=== PATIENT | male | born 1965 | race Hispanic/Latino ===

== ENCOUNTER 2019-09-27 06:34 | Emergency (ER) | payer SELFPAY ==
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
[2019-09-27] MEDS ORDERED: HYDROCODONE/APAP 10/325 TAB ONE (07:25)
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
[2019-09-27 08:20] VITALS: TEMP 97.6
[2019-09-27 08:22] VITALS: BP 142/90; O2SAT 98
== END 2019-09-27 08:14 | disposition home or self-care (01) ==
LOC: ER 06:34
DX: S32.019A Unspecified fracture of first lumbar vertebra, initial encounter for closed fracture (principal); S32.029A Unspecified fracture of second lumbar vertebra, initial encounter for closed fracture; S32.039A Unspecified fracture of third lumbar vertebra, initial encounter for closed fracture; V49.49XA Driver injured in collision with other motor vehicles in traffic accident, initial encounter; Z72.0 Tobacco use
CPT/HCPCS: 74176; 99284

== ENCOUNTER 2020-01-24 18:41 | Emergency (ER) | payer OTHER, SELFPAY ==
[2020-01-24] MEDS ORDERED: NA CHLORIDE 0.9% 1,000 ML ONE (21:08)
[2020-01-24] MEDS ORDERED: MAGNE/ALUM HYDROXD 30 ML UCUP ONE (21:32)
[2020-01-24] MEDS ORDERED: LIDOCAINE VISCOUS 2% SOLN 15 ML UDC ONE (21:34)
[2020-01-24] MEDS ORDERED: NS 0.9% VIAL 10 ML ONE (21:35)
[2020-01-24 21:40] LABS: Absolute Lymphocytes (CBC) 0.7 K/uL (0.7-4.9); Basophils % 0.3 % (0-1.3); Hematocrit 40.9 % (39.6-49.0); Lymphocytes % 4.4 % (15.3-44.8); MPV 8.5 fL (7.6-11.3)
[2020-01-24 22:00] LABS: Albumin 2.8 g/dL (3.4-5.0); Potassium 3.5 mmol/L (3.5-5.1); Protein, Total 7.4 g/dL (6.4-8.2)
--- NOTE | 2020-01-24 22:37 | RAD REPORT ---
EXAM DESCRIPTION: US - Abdomen Exam Complete - 01/24/2020 10:08 pm CLINICAL HISTORY: Abdominal pain. ABD PAIN COMPARISON: No comparisons FINDINGS: The liver is normal in size, shape and echotexture. No focal liver lesions or intrahepatic biliary dilatation is seen. Cholecystectomy. Common bile duct is normal in caliber measuring 5 millimeters. Both kidneys are normal in size, shape and echotexture. No hydronephrosis, focal lesion of concern or perinephric fluid. The spleen is normal in size measuring 8 centimeters. The pancreas and aorta are obscured by bowel gas. The visualized aspects of the IVC are grossly normal. IMPRESSION: Unremarkable study except for limited assessment of the pancreas and aorta due to bowel gas. Cholecystectomy.
[2020-01-24 23:23] LABS: Blood Morphology Comment NOT SEEN (NOT SEEN); Platelet Estimate ADEQ
--- NOTE | 2020-01-25 00:17 | ER ---
Nurse's Notes [facility] Name: Ignacio Starr Age: 54 yrs Sex: Male : 1965 Arrival Date: 01/24/2020 Time: 18:48 Bed 7 Private MD: Diagnosis: Acute pancreatitis, unspecified;Acute viral hepatitis, unspecified Presentation: 01/23 18:55 Chief complaint: Patient states: epigastric burning, upper abd pain and intermittent ss fever x 3 weeks. Pt has been seen by Doctor in [place] and had extensive testing to see what the problem may be. Pt is awaiting to hear back his results for hepatitis testing. Coronavirus screen: The patient has NOT traveled to a country currently being monitored by the [facility] within the last 14 days. Proceed with normal triage procedures. Ebola Screen: Patient denies exposure to infectious person. Patient denies travel to an Ebola-affected area in the 21 days before illness onset. Initial Sepsis Screen: Does the patient meet any 2 criteria? No. Patient's initial sepsis screen is negative. Does the patient have a suspected source of infection? No. Patient's initial sepsis screen is negative. Risk Assessment: Do you want to hurt yourself or someone else? Patient reports no desire to harm self or others. 18:55 Method Of Arrival: Ambulatory ss 18:55 Acuity: DMITRIY 3 ss Triage Assessment: 22:24 General: Appears in no apparent distress. comfortable, well groomed, well developed, lw1 well nourished. Pain: Complains of pain in diaphragm, xyphoid area and abdomen. 22:26 General: Behavior is calm, cooperative, appropriate for age. EENT: No deficits noted. lw1 Neuro: No deficits noted. Cardiovascular: No deficits noted. Respiratory: No deficits noted. GI:. Historical: - Allergies: 19:00 No Known Allergies; ss - PMHx: 19:00 None; ss - PSHx: 19:00 Cholecystectomy; Appendectomy; ss - Immunization history:: Adult Immunizations up to date. - Social history:: Smoking status: Patient denies any tobacco usage or history of. Screenin:24 Abuse screen: Denies threats or abuse. Denies injuries from another. Nutritional lw1 screening: No deficits noted. Tuberculosis screening: No symptoms or risk factors identified. Fall Risk IV access (20 points). Assessment: 22:21 Pain: Complains of pain in diaphragm, xyphoid area and abdomen Pain does not radiate. lw1 Pain currently is 5 out of 10 on a pain scale. Pain began 2-3 WEEKS AGO. Cardiovascular: No deficits noted. GI: Bowel sounds present X 4 quads. Abd is soft Abdomen is tender to palpation in right upper quadrant and right lower quadrant. 01/24 00:47 Reassessment: CALLED REPORT TO [facility] TALKED WITH SISSY. ALL QUESSTIONS AND CONCERNS lw1 ANSWERED AT THIS TIME, STATED TO CALL BACK IF ANY OTHER QUESTIONS OCCUR. [facility] IS CALLING FOR AMBULANCE AT THIS TIME. Vital Signs: 01/23 18:55 BP 129 / 87; Pulse 106; Resp 16; Temp 99.5(TE); Pulse Ox 99% on R/A; Weight 89.81 kg; ss Height 5 ft. 4 in. (162.56 cm); Pain 9/10; 21:23 BP 110 / 72; Pulse 94; Resp 22; Pulse Ox 95% on R/A; Pain 5/10; lw1 22:20 BP 119 / 73; Pulse 88; Resp 20; Pulse Ox 97% on R/A; Pain 5/10; lw1 23:34 BP 112 / 71; Pulse 79; Resp 20; Pulse Ox 95% on R/A; Pain 3/10; lw1 01/24 00:53 BP 126 / 76; Pulse 83; Resp 20; Pulse Ox 97% on R/A; Pain 3/10; lw1 01/23 18:55 Body Mass Index 33.99 (89.81 kg, 162.56 cm) ED Course: 01/23 18:48 Patient arrived in ED. ag5 18:59 Triage completed. ss 19:00 Arm band placed on right wrist. ss 20:06 Calvin Giordano MD is Attending Physician. tw4 20:36 Debbie Velez, ZACH is Primary Nurse. lw1 21:22 No provider procedures requiring assistance completed. Inserted saline lock: 20 gauge lw1 in right antecubital area, using aseptic technique. Blood collected. Missed attempt(s): 22 gauge in right hand. Patient maintains SpO2 saturation greater than 95% on room air. 21:22 Initial lab(s) drawn, by me, sent to lab. lw1 21:32 Radiology exam delayed due to lab results not completed at this time. (BUN/Creatinine). 2 22:07 Notified ED physician of a critical lab result(s). total Bilirubin 6.0. bb 22:09 US Abdomen Complete In Process Unspecified. EDMS 22:49 CT Abd/Pelvis - IV Contrast Only In Process Unspecified. EDMS 22:57 Patient has correct armband on for positive identification. Bed in low position. Call lw1 light in reach. Side rails up X 1. Pulse ox on. NIBP on. Noise minimized. Lights dimmed. Head of bed. Administered Medications: 21:21 Drug: NS 0.9% 1000 ml Route: IV; Rate: 1 bolus; Site: right antecubital; lw1 23:51 Follow up: Response: No adverse reaction; IV Status: Completed infusion; IV Intake: ea 1000ml 01/24 00:54 Follow up: Response: No adverse reaction lw1 01/23 22:16 Drug: ProTONIX 40 mg Route: IVP; Site: right antecubital; lw1 01/24 00:54 Follow up: Response: No adverse reaction; Pain is decreased lw1 01/23 22:16 Drug: GI Cocktail without - (Maalox Suspension 30 ml, Lidocaine Liquid 2 % 15 lw1 ml) Route: PO; 01/24 00:54 Follow up: Response: No adverse reaction; Pain is decreased lw1 Intake: 01/23 23:51 IV: 1000ml; Total: 1000ml. ea Outcome: 01/24 00:16 ER care complete, transfer ordered by . tw4 01:27 Patient left the ED. ar5 Signatures: Dispatcher [employer] EDMS Odalis Cuevas RN RN bb Smirch, Shelby, RN RN ss McGuire, Victoria 2 Inessa Hernandez RN RN ea Wadley, Terrence, MD MD tw4 Robles, Autumn ar5 Jade He LaDonna, RN RN lw1
--- NOTE | 2020-01-25 00:17 | EDPHYS ---
Physician Documentation [facility] Name: Ignacio Starr Age: 54 yrs Sex: Male : 1965 Arrival Date: 01/24/2020 Time: 18:48 Bed 7 Private MD: ED Physician Calvin Giordano HPI: 01/23 21:07 This 54 yrs old Male presents to ER via Ambulatory with complaints of tw4 Abdominal Pain. 21:07 The patient presents with abdominal pain. tw4 21:10 Onset: The symptoms/episode began/occurred 3 week(s) ago. The symptoms do not radiate. tw4 Associated signs and symptoms: none. The symptoms are described as dull. Modifying factors: The symptoms are alleviated by nothing, the symptoms are aggravated by nothing. Severity of pain: At its worst the pain was very mild in the emergency department the pain is unchanged. The patient has not experienced similar symptoms in the past. Historical: - Allergies: 19:00 No Known Allergies; ss - PMHx: 19:00 None; ss - PSHx: 19:00 Cholecystectomy; Appendectomy; ss - Immunization history:: Adult Immunizations up to date. - Social history:: Smoking status: Patient denies any tobacco usage or history of. ROS: 21:10 Constitutional: Negative for fever, chills, and weight loss, Eyes: Negative for injury, tw4 pain, redness, and discharge, Cardiovascular: Negative for chest pain, palpitations, and edema, Respiratory: Negative for shortness of breath, cough, wheezing, and pleuritic chest pain, Back: Negative for injury and pain, MS/Extremity: Negative for injury and deformity, Skin: Negative for injury, rash, and discoloration. 21:10 Abdomen/GI: Positive for abdominal pain, Negative for constipation, abdominal cramps, abdominal distension, anorexia, dysphagia, hematemesis, black/tarry stool, rectal pain, rectal bleeding, bowel incontinence, flatulence. Exam: 21:10 Constitutional: This is a well developed, well nourished patient who is awake, alert, tw4 and in no acute distress. Head/Face: Normocephalic, atraumatic. Chest/axilla: Normal chest wall appearance and motion. Nontender with no deformity. No lesions are appreciated. Cardiovascular: Regular rate and rhythm with a normal S1 and S2. No gallops, murmurs, or rubs. Normal PMI, no JVD. No pulse deficits. Respiratory: Lungs have equal breath sounds bilaterally, clear to auscultation and percussion. No rales, rhonchi or wheezes noted. No increased work of breathing, no retractions or nasal flaring. Back: No spinal tenderness. No costovertebral tenderness. Full range of motion. MS/ Extremity: Pulses equal, no cyanosis. Neurovascular intact. Full, normal range of motion. Neuro: Awake and alert, GCS 15, oriented to person, place, time, and situation. Cranial nerves II-XII grossly intact. Motor strength 5/5 in all extremities. Sensory grossly intact. Cerebellar exam normal. Normal gait. Psych: Awake, alert, with orientation to person, place and time. Behavior, mood, and affect are within normal limits. 21:10 Abdomen/GI: Inspection: abdomen appears normal, Bowel sounds: normal, Palpation: soft. Vital Signs: 18:55 BP 129 / 87; Pulse 106; Resp 16; Temp 99.5(TE); Pulse Ox 99% on R/A; Weight 89.81 kg; ss Height 5 ft. 4 in. (162.56 cm); Pain 9/10; 21:23 BP 110 / 72; Pulse 94; Resp 22; Pulse Ox 95% on R/A; Pain 5/10; lw1 22:20 BP 119 / 73; Pulse 88; Resp 20; Pulse Ox 97% on R/A; Pain 5/10; lw1 23:34 BP 112 / 71; Pulse 79; Resp 20; Pulse Ox 95% on R/A; Pain 3/10; lw1 01/24 00:53 BP 126 / 76; Pulse 83; Resp 20; Pulse Ox 97% on R/A; Pain 3/10; lw1 01/23 18:55 Body Mass Index 33.99 (89.81 kg, 162.56 cm) MDM: 01/23 21:06 Patient medically screened. 01/23 20:07 Order name: Basic Metabolic Panel; Complete Time: 22:27 01/23 22:34 Interpretation: Normal except: GFR 73. 01/23 20:07 Order name: CBC with Diff; Complete Time: 23:31 [facility] 01/23 22:34 Interpretation: Normal except: WBC 16.6; NEUT A 14.6; LYM% 4.4; BANDAR% 87.7. tw4 01/23 20:07 Order name: Creatinine for Radiology; Complete Time: 22:27 tw4 01/23 22:34 Interpretation: Within normal limits: CRE 1.08. tw4 01/23 20:07 Order name: Hepatic Function; Complete Time: 22:27 tw4 01/23 22:34 Interpretation: Normal except: AST 155; ALT 217; ALK 667; BILIT 6.0; BILID 5.0; ALB tw4 2.8; GLOB 4.6; A/G 0.6. 01/23 20:07 Order name: Lipase; Complete Time: 22:27 tw4 01/23 22:34 Interpretation: Normal except: LIP 1285. tw4 01/23 22:12 Order name: Manual Differential; Complete Time: 23:31 EDMO 01/23 20:07 Order name: IV Saline Lock; Complete Time: 22:27 tw 01/23 20:07 Order name: Labs collected and sent; Complete Time: 22:28 tw4 01/23 20:51 Order name: CT Abd/Pelvis - IV Contrast Only 01/23 20:51 Order name: US Abdomen Complete; Complete Time: 23:19 tw4 Administered Medications: 21:21 Drug: NS 0.9% 1000 ml Route: IV; Rate: 1 bolus; Site: right antecubital; lw1 23:51 Follow up: Response: No adverse reaction; IV Status: Completed infusion; IV Intake: ea 1000ml 01/24 00:54 Follow up: Response: No adverse reaction lw01/23 22:16 Drug: ProTONIX 40 mg Route: IVP; Site: right antecubital; lw1 01/24 00:54 Follow up: Response: No adverse reaction; Pain is decreased lw1 01/23 22:16 Drug: GI Cocktail without - (Maalox Suspension 30 ml, Lidocaine Liquid 2 % 15 lw1 ml) Route: PO; 01/24 00:54 Follow up: Response: No adverse reaction; Pain is decreased lw1 Disposition: 01/25/20 00:16 Transfer ordered to [facility]. Diagnosis are Acute pancreatitis, unspecified, Acute viral hepatitis, unspecified. - Reason for transfer: Higher level of care. - Accepting physician is Dr Hylton. - Condition is Stable. - Problem is new. - Symptoms are unchanged. Signatures: Dispatcher [employer] EDMS Chanda Allan, RN RN ss Calvin Giordano MD MD tw4 Nita Bean ar5 Debbie Velez RN RN lw1 Inessa Hernandez RN ea Corrections: (The following items were deleted from the chart) 01:27 00:16 01/25/2020 00:16 Transfer ordered to [facility]. ar5 Diagnosis is Acute pancreatitis, unspecified; Acute viral hepatitis, unspecified. Reason for transfer: Higher level of care. Accepting physician is Dr Hylton. Condition is Stable. Problem is new. Symptoms are unchanged. tw4
[2020-01-25 01:34] VITALS: TEMP 99.5
[2020-01-25 01:40] VITALS: BP 126/76; O2SAT 97
--- NOTE | 2020-01-25 11:09 | RAD REPORT ---
EXAM DESCRIPTION: Abdomen Pelvis W Contrast CLINICAL HISTORY: 54 years Male ABD PAIN COMPARISON: September 27, 2019. TECHNIQUE: Images were obtained in axial, sagittal, and coronal planes. Intravenous contrast was adm inistered. Arterial and venous phase images were obtained. This exam was performed according to our departmental dose-optimization program which includes use of Automated Exposure Control, adjustment of the mA and/or kV according to patient size and/or use of i terative reconstruction technique. FINDINGS: Prior cholecystectomy. Common bile duct is dilated in the region of the head of the pancre as measuring 1.3 cm in greatest transverse dimension. 5 mm calculus is identified involving the dista l common bile duct at the level of the ampulla. The findings would be consistent with choledocholithi asis. Mild intrahepatic biliary dilatation centrally. No abnormality involving the adrenal glands bilateral ly. Spleen is prominent in size measuring 12.7 cm in greatest dimension. No additional abnormality in volving the pancreas. No obstructing renal calcifications bilaterally. No hydronephrosis bilaterally. Unremarkable bladder. Enlarged prostate gland with nodular contour. Appendix within normal limits. Inspissated contrast is identified within the appendix. Marked diverti culosis sigmoid colon with associated mucosal thickening and mild mesenteric stranding. No bowel obst ruction or perforation. No dilatation abdominal aorta. Unremarkable portal vein. No adenopathy or abnormal fluid collections seen. Small hiatal hernia. No abnormality lower lungs bilaterally. No acute osseous abnormality. IMPRESSION: Prior cholecystectomy with findings consistent with choledocholithiasis. Intrahepatic an d extrahepatic biliary dilatation seen. Correlation with MRCP suggested for further characterization. Marked diverticulosis sigmoid colon with suspected mild diverticulitis/colitis. No perforation or abs cess. Enlarged prostate gland with nodular configuration. Correlation with PSA would be suggested to furthe r exclude neoplasm versus chronic inflammation. Electronically signed by: Wen Goode MD 01/24/2020 11:10 PM CDT Due to temporary technical issues with the PACS/Fluency reporting system, reports are being signed by the in house radiologist as a courtesy to ensure prompt reporting. The interpreting radiologist is f ully responsible for the content of the report.
== END 2020-01-25 01:27 | disposition short-term general hospital (02) ==
LOC: ER 18:41
DX: K85.90 Acute pancreatitis without necrosis or infection, unspecified (principal); B17.9 Acute viral hepatitis, unspecified
CPT/HCPCS: 96361; 85025; 80048; 36415; 80076; 83690; 74177; 76700; 96374; 99284; Q9967; J7030